=== PATIENT | male | born 1970 | race Two or more races ===

== ENCOUNTER 2024-05-06 08:23 | Outpatient (REF) | payer MEDICAID, SELFPAY ==
[2024-05-06 11:43] LABS: Estimated Average Glucose 111 mg/dL; Hemoglobin A1C 148.3498 umol/L; Hemoglobin A1c % 5.5 % (<6.0)
[2024-05-06 12:05] LABS: Alanine Aminotransferase 56 U/L (0-40); Albumin Level 4.3 g/dL (3.5-5.0); Alkaline Phosphatase 77 U/L (39-117); Anion Gap 9 (12-20); Aspartate Amino Transferase 32 U/L (5-37); Bilirubin Total 0.7 mg/dL (0.0-1.0); Blood Urea Nitrogen 15 mg/dL (9-16); Calcium 9.8 mg/dL (8.4-10.2); Carbon Dioxide 28 mmol/L (22-29); Chloride 107 mmol/L (96-108); Cholesterol 154 mg/dL (<200); Estimated Glomerular Filt Rate > 60; Glucose Random 100 mg/dL (60-115); HDL Cholesterol 45 mg/dL (>40); LDL Cholesterol Calculated 86 mg/dL (<100); Potassium 4.3 mmol/L (3.3-5.1); Sodium 140 mmol/L (135-145); Triglycerides 115 mg/dL (<150)
[2024-05-06 12:11] LABS: Creatinine Urine 164.84 mg/dL; Microalbum/Creatinine Ratio Ur 4.8 ug/mg cr (<30)
[2024-05-06 12:19] LABS: HBS Num1 0.27 mIU/mL (0-7.99); HBc Num1 0.07 S/CO (0.00-0.79); HBsAGNum1 0.31 S/CO (0.00-0.99); HIV AB/AG Nonreactive (Nonreactive); HIV Num 1 0.06 S/CO (0.00-0.99); Hepatitis B Core Antibody Nonreactive (Nonreactive); Hepatitis B Surface Antigen Negative (Negative); ~HepC Num1 0.09 S/CO (0.00-0.79); ~Hepatitis B Surface Antibody NONREACTIVE (Nonreactive); ~Hepatitis C Antibody Nonreactive (Nonreactive)
== END 2024-05-06 08:24 | disposition home or self-care (01) ==
LOC: HO.HHCL 08:23
PROVIDERS: Visit Provider Nurse Practitioner
DX: I10 Essential (primary) hypertension (principal); E66.813 Obesity, class 3; E66.01 Morbid (severe) obesity due to excess calories; Z68.41 Body mass index [BMI] 40.0-44.9, adult; Z13.9 Encounter for screening, unspecified
CPT/HCPCS: 36415; 80053; 80061; 82043; 82570; 83036; 86704; 86706; 86803; 87340; 87389

== ENCOUNTER → 2025-01-27 19:30 | Outpatient (BNV) | payer MEDICAID, SELFPAY | PROVIDERS: Visit Provider Internal Medicine | DX: G47.33 Obstructive sleep apnea (adult) (pediatric) (principal); R06.83 Snoring | CPT/HCPCS: 95811 ==

== ENCOUNTER → 2025-01-27 19:30 | Outpatient (REF) | payer MEDICAID, SELFPAY ==
--- OUTSIDE RECORDS SUMMARY | 2024-03-06 09:00 | XMS_ITS ---
Author Organization [facility] Address [address] [place] [id number] Care Team Providers Care Tractor Operator Battery Name Role Phone NO, PCP Primary Care Provider Ginna Fabian [phone] Encounters Encounter Location Date Provider Diagnosis [facility] [address] [place] [phone] 03/06/2024 Ginna Fabian Plan Of Treatment No Information Progress Notes * Gracie MALDOANDO B:1970 (54 yo M)Acc No.[id number]:03/06/2024 Case Management Patient: Luis Randy BARGER Provider: Luis Fabian :1970 A ge:53 Y S ex:Male Date:03/06/2024 Address:[address] Pcp:PCP NO Subjective: * Chief Complaints: * * Medical History: Objective: Assessment: Plan: * Treatment: * Images: Billing Information: * Visit Code: * Procedure Codes: Care Plan Details* * Electronic signature of Paul Fabian on 01/28/2025 at 01:03 AM EST Sign off status: Pending * Provider: Luis Fabian Date: 0 03/06/2024 Generated for Lory wynn/Keiko/Zahraa on: 03/31/2024 01:03 AM EST
--- OUTSIDE RECORDS SUMMARY | 2025-01-28 01:05 | XMS_ITS | Patient Health Record ---
Author Organization [facility] Address [address] [place] [address] Care Team Providers Care Train Station Server Name Role Phone NO, PCP Primary Care Provider Ginna Fabian Unavailable Reason For Referral No Information Plan Of Treatment No Information Insurance Providers Payer Name Payer Address Payer Phone Subscriber Number Group Number Insured Name Patient Relationship to Insured Coverage Start Date Coverage End Date [facility] [employer] [address] [place] [address] [place] [id number] Randy Almonte Self - patient is the insured 4 4
--- OUTSIDE RECORDS SUMMARY | 2025-01-28 01:05 | XMS_ITS | Encounter Summary ---
Author Organization [employer] Address [address] [facility] 7t [place] [address] [address] Team [address] Care [address] Worker Name Role Phone Flores Mosqueda NP Primary Care Provider [phone] Kari Swanson RN Unavailable [phone] Kunal Stein RN Unavailable [phone] Earline Jones Unavailable Reason for Visit * Reason Comments Med Refill Encounter Details Date Type Department Care Team (Late st Contact Info) Description 06/24/2024 Refill [facility] [address] [place], [place] [phone] Dante Puri MD [address] [place], [place] [phone] Social History Tobacco Use Types Packs/Day Years Used Date Smoking Tobacco: Former Cigarettes Smokeless Tobacco: Never Alcohol Use Standard Drinks/Week Comments Not Currently 0 (1 standard drink = 0.6 oz pur e alcohol) quite Alcohol Answer Date Recorded How often do you have a drink containing alcohol ? 0 04/08/2024 How many drinks containing a lcohol do you have on a typical day when you are drinking? 0 04/08/2024 How often do you have six or more drinks on one occasion? 0 04/08/2024 Depression Answer Date Recorded Patient Health Questionnaire-9 Score 21 04/08/2024 Patient Health Questionnaire-9 Score 21 04/08/2024 Last PHQ-9: Questionnaire Data Not on file 0 04/08/2024 Housing Stability Answer Date Recorded What is your housing situation today? I have gera tellez 05/08/[address] you li ve. Do you have problems with any of the following? None of the above 05/08/2024 Food Insecurity Answer Date Recorded Within the past 12 months, y ou worried that your food would run out before you got money to buy more: Never True 05/08/2024 Within the past 12 months,th e food you bought just didn't last and you didn't have enough money to get more: Never True Transportation Answer Date Recorded In the past 12 months, has l ack of transportation kept you from medical appts, meetings, work or from getting things needed for daily living? No 05/08/2024 Utilities Answer Date Recorded In the past 12 months, has t he electric, gas, oil or water company threatened to shut off services in your home? No 03/30/2024 Depression Answer Date Recorded Patient Health Questionnaire-2 Score 6 04/08/2024 Internet Access Answer Date Recorded Internet Access Q1 Yes 03/30/2024 Internet Access Q2 Not on file 03/30/2024 Sex and Gender Information Value Date Recorded Sex Assigned at Male 12/12/2023 10:18 AM EDT Legal Sex Male 10:02 AM EDT Gender Identity Male 12/12/2023 10:18 AM EDT Sexual Orientation Straight 12/12/2023 10 :19 AM EDT documented as of this encounter Plan of Treatment Upcoming Encounters Date Type Department Care Team (Late st Contact Info) Description 03/03/2025 9:30 AM EST Office Visit [facility] [address] [place] [address] Flores Mosqueda NP [address] [place] [address] documented as of this encounter Visit Diagnoses Not on filedocumented in this encounter Additional Health Concerns Assessment Noted Time PHQ-9 Depression Total Score: 21 025 4:07 PM EST documented as of this encounter Care Teams Drive Worker Relationship Specialty Start Date End Date Flores Mosqueda NP [address] [place] [address] PCP - General Family Medicine 04/08/24 Kari Swasnon RN Registered Nurse Internal Medicine 07/23/24 07/23/24 Kunal Stein, ART [address] [place] [address] Registered Nurse Family Medicine 07/23/24 07/23/24 Earline Jones 07/23/24 07/23/24 documented as of this encounter
--- OUTSIDE RECORDS SUMMARY | 2025-01-28 01:05 | XMS_ITS | Encounter Summary ---
Author Organization [employer] Address [address] [facility] 7t [place] [address] Care Team Providers Care Washing Machine Loader Name Role Phone Flores Mosqueda NP Primary Care Provider [phone] Kari Swanson RN Unavailable Kunal Stein RN Unavailable [phone] Earline Jones Unavailable Reason for Visit * Reason Comments Med Change Request Encounter Details Date Type Department Care Team (Late st Contact Info) Description 07/06/2024 Refill [facility] [address] [place] [address] Flores Mosqueda NP [address] [place] [address] Primary hypertension Social History Tobacco Use Types Packs/Day Years [...] Description 03/03/2025 9:30 AM EST Office Visit [facility] [address] [place] [address] Flores Mosqueda NP [address] [place] [address] documented as of this encounter Visit Diagnoses Diagnosis Primary hypertension Unspecified essential hypertension documented in this encounter Additional Health Concerns Assessment Noted Time PHQ-9 Depression Total Score: 21 025 4:07 PM EST documented as of this encounter Care Teams Washing Machine Loader Relationship Specialty Start Date End Date Flores Mosqueda NP [address] [place] [address] PCP - General Family Medicine 04/08/24 Kari Swanson, RN Registered Nurse Internal Medicine 07/23/24 07/23/24 Kunal Stein, ART [address] [place] [address] Registered Nurse Family Medicine 07/23/24 07/23/24 Earline Jones 07/23/24 07/23/24 documented as of this encounter
--- OUTSIDE RECORDS SUMMARY | 2025-01-28 01:05 | XMS_ITS | Encounter Summary ---
Author Organization [employer] Address [address] [facility] 7[address] [place] [address] Care Team Providers Care Manager Beauty Name Role Phone Flores Mosqueda NP Primary Care Provider [phone] Reason for Visit * Reason Comments Med Refill Pt is requesting zep bound, claiming he needs more refills Encounter Details Date Type Department Care Team (Late st Contact Info) Description 12/21/2024 Refill [facility] [address] [place] [address] Flores Mosqueda NP [address] [place] [address] Class 3 severe obesity due to excess calories with serious comorbidity and body mass index (BMI) of 40.0 to 44.9 in adult (HCC) Social History Tobacco Use Types Packs/Day Years [...] Answer Date Recorded Patient Health Questionnaire-9 Score 3 07/17/2024 Patient Health Questionnaire-9 Score 3 07/17/2024 Last PHQ-9: Questionnaire Data Not on file 0 07/17/2024 Housing Stability Answer Date Recorded What is [...] Answer Date Recorded Patient Health Questionnaire-2 Score 0 07/17/2024 Internet Access Answer Date Recorded Internet Access Q1 Yes 03/30/2024 Internet Access Q2 Not on file 03/30/2024 Sex and Gender Information Value Date Recorded Sex Assigned at Male 12/12/2023 10:18 AM EDT Legal Sex Male 10:02 AM EDT Gender Identity Male 12/12/2023 10:18 AM EDT Sexual Orientation Straight 12/12/2023 10 :19 AM EDT documented as of this encounter Miscellaneous Notes * Telephone Encounter - Ivelisse Trujillo RN - 12/21/2024 11:55 AM EST TC placed to pt to gather information per below PCP request. Pt reports they have not missed any doses since last fill. Pt reports last injection was last Saturday12/15/24. Message forwarded to PCP for review. Flores Mosqueda NP: Kyle, I just saw the zepbound refill for this patient. can you please verify if he's missed any doses. looks like last fill was in October which would mean he hasn't used it since about December 11. If he has missed more than 2 weeks, we will need to go back to the 2.5 mg dosing * Telephone Encounter - Ivelisse Trujillo RN - 12/21/2024 10:47 AM EST TC placed to [facility] pharmacy to determine if Tirzepatide-Weight Management 5 MG/0.5ML solution auto-injector has refills available. Pharmacy staff Yandy states refills not available and requires new prescription. Message forwarded to PCP to review and advise. * Telephone Encounter - Maria De Jesus DeL eon - 12/21/2024 10:35 AM EST Pt is requesting zepbound, claiming he needs more refills documented in this encounter Plan of Treatment Upcoming Encounters Date Type Department Care Team (Late st Contact Info) Description 03/03/2025 9:30 AM EST Office Visit [facility] [address] [place] [address] Flores Mosqueda NP [address] [place] [phone] documented as of this encounter Visit Diagnoses Diagnosis Class 3 severe obesity due to excess calories with serious comorbidity and body mass index (BMI) of 40.0 to 44.9 in adult (HCC) documented in this encounter Additional Health Concerns Assessment Noted Time PHQ-9 Depression Total Score: 3 07/18/19 25 2:32 PM EDT documented as of this encounter Care Teams Manager Beauty Relationship Specialty Start Date End Date Flores Mosqueda NP [address] [place] [phone] PCP - General Family Medicine 04/08/24 documented as of this encounter
--- OUTSIDE RECORDS SUMMARY | 2025-01-28 01:05 | XMS_ITS | Encounter Summary ---
Author Organization [employer] Address [address] [facility] 7 [place] [address] Care Team Providers Care Evening Anchor Name Role Phone Flores Mosqueda NP Primary Care Provider [phone] Reason for Visit * Reason Comments Med Refill Encounter Details Date Type Department Care Team ([facility] st Contact Info) Description 10/19/2024 Refill [facility] [address] [place] [address] Flores Mosqueda NP [address] [place] [address] Class 3 severe obesity due to excess calories with serious comorbidity and body mass index (BMI) of 40.0 to 44.9 in adult Social History Tobacco Use Types Packs/Day Years [...] Description 03/03/2025 9:30 AM EST Office Visit [facility] [address] [place] [address] Flores Mosqueda NP [address] [place] [address] documented as of this encounter Visit Diagnoses Diagnosis Class 3 severe obesity due to excess calories with serious comorbidity and body mass index (BMI) of 40.0 to 44.9 in adult (HCC) documented in this encounter Additional Health Concerns Assessment Noted Time PHQ-9 Depression Total Score: 3 07/18/19 25 2:32 PM EDT documented as of this encounter Care Teams Evening Anchor Relationship Specialty Start Date End Date Flores Mosqueda NP [address] [place] [address] PCP - General Family Medicine 04/08/24 documented as of this encounter
--- OUTSIDE RECORDS SUMMARY | 2025-01-28 01:05 | XMS_ITS | Encounter Summary ---
Author Organization [email or web address] Address [address] [facility] 7t [place] [address] Care Team Providers Care Manager Consumer Name Role Phone Flores Mosqueda NP Primary Care Provider [phone] Encounter Details Date Type Department Care Team ([facility] st Contact Info) Description 10/21/2024 Orders Only [facility] [address] [place] [address] Flores Mosqueda NP [address] [place] [address] Class 3 severe obesity due to excess calories with serious comorbidity and body mass index (BMI) of 40.0 to 44.9 in adult (Primary Dx) Social History Tobacco Use Types Packs/Day Years [...] Description 03/03/2025 9:30 AM EST Office Visit [facility] [address] [place] [address] Flores Mosqueda NP [address] [place] [address] documented as of this encounter Visit Diagnoses Diagnosis Class 3 severe obesity due to excess calories with serious comorbidity and body mass index (BMI) of 40.0 to 44.9 in adult (HCC)- Primary documented in this encounter Additional Health Concerns Assessment Noted Time PHQ-9 Depression Total Score: 3 07/18/19 25 2:32 PM EDT documented as of this encounter Care Teams Manager Consumer Relationship Specialty Start Date End Date Flores Mosqueda NP [address] [place] [address] PCP - General Family Medicine 04/08/24 documented as of this encounter
--- OUTSIDE RECORDS SUMMARY | 2025-01-28 01:05 | XMS_ITS | Clinical Summary ---
Author Organization [employer] Address [address] [place] [address] Care Team Providers Care Set Builder Name Role Phone Flores Mosqueda NP Primary Care Provider [phone] Allergies Active Allergy Reactions Criticality Noted Date Comments Aspirin Angioedema 12/11/2023 Facial swelling Medications * This document contains information received from the source organization and may not represent a complete record from that organization. QUEtiapine 150 MG tabletIndication s:Mixed anxiety and depressive disorder Take 1 tablet (150 mg) by mouth at bedtime. 30 tablet 1 04/08/19 25 Active tadalafil (Cialis) 2.5 MG tabletIndication s:Erectile disorder Take 1 tablet (2.5 mg) by mouth Once per day. 30 tablet 07/18/19 25 Active losartan-hydroCH LOROthiazide (Hyzaar) 50-12.5 MG tabletIndication s:Primary hypertension Take 1 tablet by mouth Once per day. 90 tablet 1 10/06/19 25 026 Active hydrOXYzine HCl (Atarax) 25 MG tabletIndication s:Mixed anxiety and depressive disorder TAKE 1 TABLET BY MOUTH FOUR TIMES DAILY 360 tablet 1 01/07/20 25 Active buPROPion XL (Wellbutrin XL) 150 MG 24 hr tabletIndication s:Mixed anxiety and depressive disorder TAKE 1 TABLET BY MOUTH EVERY DAY IN THE MORNING DO NOT BREAK, CRUSH, DISSOLVE OR CHEW 30 tablet 1 5 4:32 PM EST 01/19/20 25 Active Tirzepatide-Weig ht Management (Zepbound) 10 MG/0.5ML solution auto-injectorInd ications:Class 3 severe obesity due to excess calories with serious comorbidity and body mass index (BMI) of 40.0 to 44.9 in adult ([facility]) Inject 0.5 mL (10 mg) under the skin every 7 (seven) days. 2 mL 5 2:18 PM EST 01/20/20 25 Active hydrOXYzine HCl (Atarax) 25 MG tabletIndication s:Mixed anxiety and depressive disorder Take 1 tablet (25 mg) by mouth 4 times daily. 360 tablet 1 07/02/19 25 025 Discontinued buPROPion XL (Wellbutrin XL) 150 MG 24 hr tabletIndication s:Mixed anxiety and depressive disorder Take 1 tablet (150 mg) by mouth in the morning. Do not crush, chew, or split. 30 tablet 1 11/25/19 25 025 Discontinued Tirzepatide-Weig ht Management 7.5 MG/0.5ML solutionIndicati ons:Class 3 severe obesity due to excess calories with serious comorbidity and body mass index (BMI) of 40.0 to 44.9 in adult ([facility]) Inject 7.5 mg under the skin 1 (one) time per week for 28 days. 2 mL 12/22/19 25 025 Discontinued Active Problems Problem Noted Date Diagnosed Date Screening for colon cancer 06/18/2024 Assessment & Plan (06/18/2024 11:02 AM EDT): -patient agreeable to screening with cologuard -counseled on 13% false positive and 8% false negative rate and is aware that if the test is positive a diagnostic colonoscopy should be pursued within 3-6 months. -patient informed of need to repeat test in 3 years if negative result -cologuard order placed Class 3 severe obesity due t o excess calories with serious comorbidity and body mass index (BMI) of 40.0 to 44.9 in adult 05/08/2024 Assessment & Plan (11/05/2024 1:09 PM EDT): -Patient on pharmacological management having completed single dose thus far -reviewed side effects of GLP1 including eating small portions and not eating through sensation of fullness. No personal or family history of thyroid cancer or pancreatitis. Advised to keep medication refrigerated, but do not freeze -Considered discontinuation of the medication due to recent retinal detachment, however review of suggests there is no need for med discontinuation; rather close follow-up with supervisor dry cleaning is recommended. Patient is informed of this and verbalizes understanding. -will increase Zepbound dose with refill pending tolerance. Assessment & Plan (10/07/2024 5:49 AM EDT): -pending insurance approval for zepbound for weight loss -encouraged continued use of topamax until then -Dietary Recommendations: Fruits, vegetables, whole grains, protein foods, and fat-free or low-fat dairy products are healthy choices. Eat different types of protein foods in your diet. This can include seafood, lean meats, poultry, beans, peas, lentils, nuts, seeds, soy products, and eggs. Limit foods and beverages higher in added sugars, saturated fat, and sodium. Exercise Recommendations: At least 150 minutes of moderate-intensity physical activity per week, or an equivalent combination of moderate- and vigorous-intensity activity Assessment & Plan (08/20/2024 5:56 AM EDT): -patient will benefit from initiation of Zepbound to assist with weight management. -phentermine is contraindicated due to hypertension and topamax does not appear to be effective for him as is not experiencing any appetite changes. -Will start at low dose and titrate monthly pending patient tolerance -No contraindications identified: hx of pancreatitis, hx of medullary thyroid cancer. No known retinopathy. -Discussed side effects with patient: side effects of GLP1: nausea, vomiting, diarrhea & risk of pancreatitis. -discussed mechanism of action with patient which include eating small portions and not eating through sensation of fullness. -Advised to keep medication refrigerated, but do not freeze -Recommended to decrease soda and sugary beverage consumption. -Recommended at least 20 g per meal of protein to assist with satiety. -Recommended at least 150 min/week of moderate intensity exercise. -scheduled to meet with reel stripper Assessment & Plan (06/18/2024 11:00 AM EDT): Dietary Recommendations: Fruits, vegetables, whole grains, protein foods, and fat-free or low-fat dairy products are healthy choices. Eat different types of protein foods in your diet. This can include seafood, lean meats, poultry, beans, peas, lentils, nuts, seeds, soy products, and eggs. Limit foods and beverages higher in added sugars, saturated fat, and sodium. Exercise Recommendations: At least 150 minutes of moderate-intensity physical activity per week, or an equivalent combination of moderate- and vigorous-intensity activity -metabolic labs ordered Assessment & Plan (05/08/2024 7:22 PM EDT): -discussed insurance requirement of oral management before approval for injectable and patient verbalizes understanding -slightly hesitant to initiate phentermine given patient's substance use history. He reports complete remission w/o urge for use. Medications discussed in great detail with risks and benefits/potential side effects reviewed -informed pt pharm management is not stand alone and should be an add on to diet and exercise Dietary Recommendations: Fruits, vegetables, whole grains, protein foods, and fat-free or low-fat dairy products are healthy choices. Eat different types of protein foods in your diet. This can include seafood, lean meats, poultry, beans, peas, lentils, nuts, seeds, soy products, and eggs. Limit foods and beverages higher in added sugars, saturated fat, and sodium. Exercise Recommendations: At least 150 minutes of moderate-intensity physical activity per week, or an equivalent combination of moderate- and vigorous-intensity activity -agreeable to nutrition referral -if patient's BP continues to fluctuate during 2 week trial, will discontinue med use -follow-up in 2 weeks to assess for tolerance -patient verbalizes understanding and agrees with plan HTN (hypertension) 12/11/2023 Assessment & Plan (11/05/2024 1:02 PM EDT): -stable per JNC8 guideline goal of <140/90 -daily med compliance discussed -lifestyle and dietary modifications encouraged -refill for losartan/ hydrochlorothiazide sent to pharmacy Assessment & Plan (10/07/2024 5:48 AM EDT): -initial elevated with improved repeat -discussed medication compliance and reviewed lifestyle and dietary modifications Assessment & Plan (08/20/2024 5:51 AM EDT): -started losartan-hydrochlorothiazide 50-12.5 given persistent elevation -discontinued lisinopril 40 mg as it was not yielding positive effects -advised continued dietary and lifestyle changes -follow-up 2 weeks with team RN for BP check Assessment & Plan (06/18/2024 10:54 AM EDT): -not controlled -currently taking lisinopril 40 mg -med compliance discussed, along with lifestyle and dietary changes -advised daily home BP monitoring -ED precautions reviewed -scheduled RN follow-up 1 week -plan to add hydrochlorothiazide w/ persistent elevation -monitoring labs ordered Assessment & Plan (05/08/2024 7:14 PM EDT): -repeat BP within acceptable range -reviewed medication compliance -advised continued home BP monitoring two times daily -will assess readings in 2 weeks at follow-up Anxiety 12/11/2023 Mixed anxiety and depressive disorder 12/11/2023 Assessment & Plan (06/18/2024 11:01 AM EDT): -Patient Health Questionnaire-9 Score: 21 (04/08/2024 4:07 PM) Patient Health Questionnaire-2 Score: 6 (04/08/2024 4:07 PM) Thoughts that you would be better off or hurting yourself in some way: Not at all (04/08/2024 4:07 PM) -SHEREEN-7 Total Score: 18 (04/08/2024 4:07 PM) -medication refills provided. Wellbutrin dose decreased to 150 mg from 300 every day and seroquel dose increased to 150 mg at bedtime from 100 mg to assist with daytime drowsiness -discussed benefits of engaging in gentle yoga practices, meditation, deep breathing and journaling along with physical activity to aid in symptom improvement - referral placed for establishment with psych prescriber - consulted to speak with patient today H/O alcohol dependence (CMS/HCC) 12/11/2023 H/O cocaine abuse (CMS/HCC) 12/11/2023 Resolved Problems Problem Noted Date Diagnosed Date Resolved Date Encounter to establish care 06/18/2024 10/07/2024 Assessment & Plan (06/18/2024 11:02 AM EDT): -patient is new to [facility] -personal medical, surgical, and medication histories reviewed along with family hx -routine health maintenance discussed Encounters Date Type Department Care Team Description 01/18/2025 Refill [facility] [address], [place] [address] Flores Mosqueda NP Class 3 severe obesity due to excess calories with serious comorbidity and body mass index (BMI) of 40.0 to 44.9 in adult ([facility]) 01/14/2025 Refill [facility] [address], [place] [address] Flores Mosqueda NP Mixed anxiety and depressive disorder 01/11/2025 Telephone [facility] [address] [facility] [place] [address] Flores Mosqueda NP Chart Prep 01/06/2025 Telephone [facility] [address] [facility] [place] [address] Flores Mosqueda NP Chart Prep 01/06/2025 Telephone [facility] [address] [facility] [place] [address] Flores Mosqueda NP 01/04/2025 Refill [facility] [address] [facility] [place] [address] Flores Mosqueda NP Mixed anxiety and depressive disorder 12/29/2024 9:00 AM EST Office Visit [facility] [address] [place] [address] Tarka, Lauren, OD Combined form of age-related cataract, right eye (Primary Dx); Presence of intraocular lens; Left retinal detachment; Presbyopia 12/29/2024 Travel 12/23/2024 Travel 12/21/2024 Orders Only [facility] [address] [facility] [place] [address] Flores Mosqueda NP Class 3 severe obesity due to excess calories with serious comorbidity and body mass index (BMI) of 40.0 to 44.9 in adult ([facility]) (Primary Dx) 12/21/2024 Refill [facility] [address], [place] [address] Flores Mosqueda NP Class 3 severe obesity due to excess calories with serious comorbidity and body mass index (BMI) of 40.0 to 44.9 in adult (HCC) 11/24/2024 Refill [facility] [address] [place] [address] Flores Mosqueda NP Mixed anxiety and depressive disorder from Last 3 Months Immunizations Immunization Administration Dates Next Due Hep A, Adult 10/05/2024 HepB-CpG 10/05/2024 Social History Tobacco Use Types Packs/Day Years Used Date Smoking Tobacco: Former Cigarettes Smokeless Tobacco: Never Tobacco Cessation:Counseling Given: Not Answered Alcohol Use Standard Drinks/Week Comments Not Currently [...] Orientation Straight 12/12/2023 10 :19 AM EDT Last Filed Vital Signs Vital Sign Reading Time Taken Comments Blood Pressure 138/96 10/05/2024 3:24 PM EDT Pulse 72 10/05/2024 3:19 PM EDT Temperature 36.7 C (98.1 F) 10/05/2024 3:19 PM EDT Respiratory Rate 18 10/05/2024 3:19 PM EDT Oxygen Saturation 98% 10/05/2024 3:19 PM EDT Inhaled Oxygen Concentration - - Weight 133 kg (292 lb 9.6 oz) 10/05/2024 3:19 PM EDT Height 177.8 cm (5' 10 ) 10/05/2024 3:19 PM EDT Body Mass Index 41.98 10/05/2024 3:19 PM EDT Plan of Treatment Upcoming Encounters Date Type Department Care Team (Late st Contact Info) Description 03/03/2025 9:30 AM EST Office Visit [facility] [address] [place] [address] Flores Mosqueda NP [address] [place] [address] Health Maintenance Due Date Last Done Comments CT Colonography 1970 Colonoscopy 1970 Colorectal Cancer Screening 1970 FIT DNA/Cologuard 1970 FIT 1970 FOBT 1970 Sigmoidoscopy 1970 DTaP/Tdap/Td Vaccines (1 - Tdap) 1989 Pneumococcal Vaccine: 50+ Years (1 of 2 - PCV) 1989 RSV Patients and Patients Aged 60 years or older (1 - Risk 50-74 years 1-dose series) 2020 Zoster Vaccines (1 of 2) 2020 COVID-19 Vaccine (1 - 2024-2 6 season) 2024 Influenza Vaccine (#1) 2024 Hepatitis B Vaccines (2 of 2 - CpG 2-dose series) 11/02/2024 10/05/2024 Hepatitis A Vaccines (2 of 2 - Risk 2-dose series) 04/07/2025 10/05/2024 Alcohol/Substance Use Screening 04/08/2025 04/08/2024 SDOH Screening 05/08/2025 05/08/2024 Disability Screening 05/22/2025 05/22/2024 Depression Screening 07/17/2025 07/17/2024, 07/17/2024 Tobacco Screening 10/05/2025 10/05/2024 Lipid Panel 05/06/2029 05/06/2024 HIV Screening Completed 05/06/2024 Hepatitis C Screening Completed 05/06/2024 HIB Vaccines Aged Out No longer eligi ble based on patient's age to complete this topic HPV Vaccines Aged Out No longer eligi ble based on patient's age to complete this topic IPV Vaccines Aged Out No longer eligi ble based on patient's age to complete this topic Meningococcal B Vaccine Aged Out No l onger eligible based on patient's age to complete this topic Meningococcal Vaccine Aged Out No elizabeth inessa eligible based on patient's age to complete this topic RSV under 20 months Aged Out No longe r eligible based on patient's age to complete this topic Rotavirus Vaccines Aged Out No longer eligible based on patient's age to complete this topic Procedures Procedure Name Priority Date/Time Associated Diagnosis Comments HEPATITIS C AB W/REFL TO HCV RNA, QN, PCR Routine 05/06/2024 8:30 AM EDT Encounter for health-related screening HIV 1/2 ANTIGEN/ANTIBODY, FOURTH GENERATION W/RFL Routine 05/06/2024 8:30 AM EDT Encounter for health-related screening LIPID PANEL, STANDARD Routine 05/06/2024 8:30 AM EDT Class 3 severe obesity due to excess calories without serious comorbidity with body mass index (BMI) of 40.0 to 44.9 in adult (CMS/HCC) from Last 3 Months or Most Recently Relevant to Health Maintenance Results * Hepatitis C Antibody with Reflex to HCV, RNA, Quantitative, Real-Time PCR (05/06/2024 8:30 AM EDT) Pathologist [facility] Hepatitis C Antibody Nonreactive Nonreactive [facility] Comment:Antibodies to HCV no t detected; does not exclude early acuteHCV infection. Blood Venous blood specimen / Unknown 05/06/2024 8:30 AM EDT 05/06/2024 11:15 AM EDT [facility] LAB BLOOD ORDERABLES Final Resu lt Performing Organization Address City/[facility]/ZIP Co de Phone Number [facility] [address] [place] [phone] * HIV-1/2 Antigen and Antibodies, Fourth Generation, with Reflexes (05/06/2024 8:30 AM EDT) [facility] HIV AB/AG Nonreactive Nonreactive [facility] Comment:HIV-1 p24 Ag and/or HIV-1/HIV-2 Ab not detected.A test result that is nonreactive does not exclude thepossibility of exposure to or infection with HIV-1 and/orHIV-2. Nonreactive results in this assay for individualswith prior exposure to HIV-1 and/or HIV-2 may be due toantigen and antibody levels that are below the limit ofdetection of this assay.The [employer] HIV Ag/Ab Combo assay result andsupplemental assay results should be interpreted inconjunction with the patient's clinical presentation,history and other laboratory results. If the results areinconsistent with clinical evidence, additional testing issuggested to confirm the result. Blood Venous blood specimen / Unknown 05/06/2024 8:30 AM EDT 05/06/2024 11:15 AM EDT [facility] [employer]ESS[employer] LAB BLOOD ORDERABLES Final Resu lt Performing Organization Address City/[facility]/ZIP Co de Phone Number [facility] [address] [place] [phone] * Lipid Panel, Standard (05/06/2024 8:30 AM EDT) [facility] Triglycerides 115 <150 mg/dL [facility] Comment:Desirable Triglyceri de: less than 150 mg/dLBorderline High Triglyceride 150-199 mg/dLHigh Triglyceride: 200-499 mg/dLVery High Triglyceride: greater than or equal to 5OO mg/dL Cholesterol 154 <200 mg/dL [facility] Comment:Desirable Cholestero l: less than 200 mg/dLBorderline High Cholesterol: 200-239 mg/dLHigh Cholesterol: greater than 239 mg/dL LDL Cholesterol Calculated 86 <100 mg/dL [facility] Comment:Desirable LDL: less than 100 mg/dLNear Optimal/Above Optimal LDL: 110- 129 mg/dLBorderline High LDL: 130-159 mg/dLHigh LDL: 160-189 mg/dLVery High LDL: greater than or equal to 190 mg/dL HDL Cholesterol 45 >40 mg/dL [facility] Comment:Desirable HDL: great er than 40 mg/dL Note: This HDL assay may give artificially low results in patients with liver disease. Blood Venous blood specimen / Unknown 05/06/2024 8:30 AM EDT 05/06/2024 11:15 AM EDT Flores Mosqueda NP LAB BLOOD ORDERABLES Final Resu lt [facility] [address] [place] [phone] from Last 3 Months or Most Recently Relevant to Health Maintenance Insurance [facility] C3 Care Teams Set Builder Relationship Specialty Start Date End Date Flores Mosqueda NP [address] [place] [address] PCP - General Family Medicine 04/08/24
== END ==
LOC: HO.SL 19:30
PROVIDERS: Visit Provider Nurse Practitioner
DX: G47.33 Obstructive sleep apnea (adult) (pediatric) (principal); G47.36 Sleep related hypoventilation in conditions classified elsewhere; R06.83 Snoring
CPT/HCPCS: 95811